=== PATIENT | male | born 1960 | race Caucasian/White ===

== ENCOUNTER → 2020-04-11 09:12 | Outpatient (CLI) | payer OTHER, MEDICAID, SELFPAY ==
[2020-04-11 10:52] LABS: BUN Creatinine Ratio 20.2 (6-22); Blood Urea Nitrogen 26 mg/dL (9-20); Estimated Glomerular Filt Rate 56.4 mL/min (>60)
== END ==
PROVIDERS: Family Provider Family Medicine; PCP Family Medicine; Referring Provider Urology; Visit Provider Urology
DX: R31.0 Gross hematuria (principal)
CPT/HCPCS: 36415; 82565; 84520

== ENCOUNTER → 2020-04-12 09:21 | Outpatient (CLI) | payer OTHER, MEDICAID, SELFPAY ==
--- NOTE | 2020-04-12 09:24 | DI.CT.S_ITS ---
PROCEDURE: CT ABDOMEN PELVIS WO/W CON INDICATIONS: Gross hematuria TECHNIQUE: Optional 5 mm thick noncontrast images acquired from the diaphragm to the symphysis pubis. After the administration of intravenous contrast, 5 mm thick images acquired from the diaphragm to the symphysis pubis after a 10-minute delay. 2 mm thick coronal and sagittal reformats were then performed of the kidneys and ureters. For radiation dose reduction, the following was used: automated exposure control, adjustment of mA and/or kV according to patient size. COMPARISON: None. FINDINGS: Image quality: Excellent. Lung bases: Lung bases are clear. Heart size is normal. Urinary system: No right kidney is seen. The left kidney demonstrates no focal abnormality. On precontrast imaging, no stones are seen. No enhancing masses are seen. Along the anterior aspect of the left kidney, there is a hyperdense cyst, which measures 22 Hounsfield units on precontrast imaging and postcontrast imaging. When filled with contrast, the renal calyces demonstrate a normal appearance. The ureter demonstrates no focal abnormality. No focal lateral thickening is seen. No bladder calcifications are seen. Other solid organs: Liver is normal in size and enhancement. Gallbladder has been removed. Biliary system is non dilated. Pancreas enhances normally. Spleen is normal in size and enhancement. No adrenal nodules. Peritoneum and bowel: Bowel loops demonstrate normal wall thickness and caliber. No free fluid or air. Incidental note is made of a normal-appearing appendix. Nodes and vessels: No retroperitoneal or mesenteric adenopathy by size criteria. Aorta and inferior vena cava are normal in size. Abdominal wall: No ventral hernias. Pelvis: No pathologic free pelvic fluid. No inguinal adenopathy. Bilateral fat containing inguinal hernias are seen, left worse than right. Bones: No suspicious bony lesions. No vertebral body compression fractures. Numerous chronic appearing Schmorl's nodes are seen. Mild retrolisthesis is seen at the L4-L5 level. Age-appropriate bony degenerative changes are seen. Numerous levels with bridging osteophytes can be seen. IMPRESSION: No right kidney is seen. Please correlate with known patient history. A cause of hematuria is not identified. No left kidney masses or stones are seen. There is a hyperdense, nonenhancing cyst seen involving the anterior left kidney. No ureteral or bladder abnormalities are seen. Incidental note is made of: Cholecystectomy Numerous Schmorl's nodes Normal appendix Bilateral fat containing inguinal hernias Dictated by: Konstantin Zarate M.D. on 04/12/2020 at 9:09 Approved by: Konstantin Zarate M.D. on 04/12/2020 at 9:14
== END ==
PROVIDERS: Family Provider Family Medicine; PCP Family Medicine; Referring Provider Urology; Visit Provider Urology
DX: R31.0 Gross hematuria (principal); N28.1 Cyst of kidney, acquired; K40.20 Bilateral inguinal hernia, without obstruction or gangrene, not specified as recurrent; Z90.49 Acquired absence of other specified parts of digestive tract
CPT/HCPCS: 74178; Q9967

== ENCOUNTER 2021-01-30 10:30 | Outpatient (RCR) | payer OTHER, MEDICAID, SELFPAY ==
--- NOTE | 2021-01-17 17:46 | PT.OIE ---
Current Diagnoses Pain in right knee (01/16/21) Stiffness of right knee, not elsewhere classified (01/16/21) Visit Care Team Role Provider Type Alba Yeager MD Attending Provider Non-Staff Family Provider Primary Care Provider Referring Provider Specialty: Medical [place], [address] Email: Physical Therapy Initial Evaluation PT-OP-A Visit Information Start: 01/16/21 17:38 Freq: Status: Active Protocol: Document 01/16/21 10:30 DCW (Rec: 01/16/21 17:47 [facility] [id number]) Out-Patient Physical Therapy Visit Information Visit Information Visit Type Initial Evaluation Visit Start Time 10:30 Visit Stop Time 11:05 Total Visit Minutes 35 Visit Number 1 Number of RICE MILLING SUPERVISOR Visits 0 Evaluation Information Evaluation Date 01/16/21 PT-OP-B Current Condition Start: 01/16/21 17:38 Freq: Status: Active Protocol: Document 01/16/21 10:30 DCW (Rec: 01/16/21 17:47 [facility] [id number]) Current Condition History of Current Condition Onset Date 4-5 month history Current Complaints Right knee pain, stiffness History of Current Condition Pt is a 60 year old male complaining of a 4-5 month history of right knee pain. Pt reports that 2-3 years ago, he had a meniscus tear, which was surgically repaired, however his knee is beginning to feel just like it did with his prior tear. Pt notes he did not have any traumatic injury when this began, it just crept up on him. Pt is very point specific to his anteriomedial joint line. Pt does note his knee will occasionally give out on him. He reports he has difficulty bending down to nut picker anything, bending his knee to don/doff shoes and socks, and has increased pain when attempting to perform his yard work. Pt also has 4 stairs to enter his house, and it is very difficult to ascend them after a long day working outside. Pt reports the only relief he has found is resting . Does note that he has a limp following a CVA a few years ago, and also admits it led to some memory problems, but other than that, has no significant remaining complications. Prior Treatments and Tests Prior history of right mensicus tear and repair Treatment Goals Patient/Caregiver Goals Return to yard work with no increased pain, Don/doff socks and shoes independently PT-OP-C Subjective Start: 01/16/21 17:38 Freq: Status: Active Protocol: Document 01/16/21 10:30 DCW (Rec: 01/16/21 17:49 [facility] [id number]) OP-PT Subjective Patient Comments Patient Comments It is really starting to feel just like it did a few years ago when I had a tear. It's not as bad yet, but it's getting there. Patient Reported Progress Worse Patient Questionnaires Lower Extremity Functional Scale LEFS Score 39/80 = 48.75 PT-OP-F Manual Assessment Start: 01/16/21 17:38 Freq: Status: Active Protocol: Document 01/16/21 10:30 DCW (Rec: 01/16/21 17:50 [facility] [id number]) Manual Assessments Soft Tissue Assessment Soft Tissue Mobility Assessment Soft tissue edema and joint effusion, pain with palpation along anteriomedial joint line . PT-OP-J Posture/Palpation/Skin Start: 01/16/21 17:38 Freq: Status: Active Protocol: Document 01/16/21 10:30 DCW (Rec: 01/16/21 17:53 [facility] [id number]) Skin Assessment Circumference Measurement 3 Location 10 cm superior to right knee joint line Measurement (Centimeters) 47.3 Comments 10 cm superior to left knee joint line: 46.8 cm 2 Location right knee joint line Measurement (Centimeters) 41 Comments left knee joint line: 38.8 1 Location 10 cm inferior to right knee joint line Measurement (Centimeters) 39.7 Comments 10 cm inferior to left knee joint line: 38.5 cm PT-OP-K Range of Motion Start: 01/16/21 17:38 Freq: Status: Active Protocol: Document 01/16/21 10:30 DCW (Rec: 01/16/21 17:53 [facility] [id number]) Knee Goniometric Range of Motion Knee Right Knee ROM WFL No Flexion Active (degrees) 105 Extension Active (degrees) 4 Left Knee ROM WFL Yes Patient Position Supine Flexion Active (degrees) 116 Extension Active (degrees) 0 PT-OP-L Special Tests Start: 01/16/21 17:38 Freq: Status: Active Protocol: Document 01/16/21 10:30 DCW (Rec: 01/17/21 09:36 [facility] [id number]) Special Tests Knee Special Tests Varus- 25 Degrees Test Results Negative Valgus- 25 Degrees Test Results Pain in medial R knee, no laxity Posterior Sag Test Results Negative Posterior Draw Test Results Negative Patella Tap Test Results Positive R John Test Test Results Positive R Elva's Test Results Negative Bounce Home Test Results Positive R Apprehension Test Test Results Positive R Apley's Compression Test Results Positive R Anterior Draw Test Results Negative PT-OP-M Strength Start: 01/16/21 17:38 Freq: Status: Active Protocol: Document 01/16/21 10:30 DCW (Rec: 01/17/21 09:36 [facility] [id number]) Knee Strength Knee Manual Muscle Testing Right Flexion (S2) 5 Normal Extension (L3) 5 Normal Comments No pain with muscle testing PT-OP-T Assessment and Plan Start: 01/16/21 17:38 Freq: Status: Active Protocol: Document 01/16/21 10:30 DCW (Rec: 01/17/21 17:46 [facility] [id number]) Physical Therapy Assessment Rehab Potential Rehabilitation Potential Fair Evaluation Complexity Number of Personal Factors/Comorbidities 1-2 Number of Body Systems Impaired 1-2 Clinical Presentation at Evaluation Evolving Impairments Impairments Activity Tolerance,Edema, Functional Activities, Functional Mobility,Gait,Pain, ROM,Tone Goals Three Impairment Right joint effusion along joint line Welfare Manager Goal (LTG) Pt to demonstrate decrease of right knee effusion by decreasing circumfrential measurement along joint line from 41 cm to 39 cm LTG Duration 03/18/21 Two Impairment Pt unable to put on his socks without assistance due to limited ROM Welfare Manager Goal (LTG) Pt to demonstrate right knee ROM improved from 4?-105? to 0 ?-115? to enable him to don/ doff his shoes and socks without assistance LTG Duration 03/18/21 One Impairment Pt does not have an appropriate home exercise program Short Term Goal (STG) Pt to be independent and compliant with an appropriate HEP STG Duration 02/16/21 Assessment Summary Assessment Pt presents with signs and symptoms consistent with a meniscus strain or potential tear. Pt has point specific pain along right anteriormedial joint line, decreased right ROM, joint edema, and positive bounce home, apprehension, John, and Apley compression tests, which are all suggestive of possible medial meniscus involvement. Pt may benefit from skilled therapy focusing on decreasing edema/effusion, improving ROM, pain-control, and decreasing antalgic gait. Physical Therapy Plan Frequency and Duration Frequency of Treatment 2x/Week Duration of Treatment Two months Plan of Care Start Date 01/16/21 Plan of Care End Date 03/18/21 Therapeutic Interventions Therapeutic Interventions Gait Training,Home Exercise Program,Joint Mobilizations, Manual Therapy,Neuromuscular Re-education,Patient/Caregiver Education,Self-Care/Home Management,Soft Tissue Mobilization,Taping, Therapeutic Activities, Therapeutic Exercises Modalities Cold Pack/Ice Massage,Electric Stimulation,Hot Packs, Ultrasound Next Visit Focus/Plan Next Note Type Treatment Note Next Visit Plan ROM, edema control, STM, joint mobilization
--- NOTE | 2021-01-17 17:46 | PT.OPPOC ---
Physical, Occupational & Speech Therapy At [facility] Current Diagnoses Pain in right knee (01/16/21) Stiffness of right knee, not elsewhere classified (01/16/21) Visit Care Team Role Provider Type Alba Yeager MD Attending Provider Non-Staff Family Provider Primary Care Provider Referring Provider Specialty: Medical Address: [address] [place] [address], [id number] Email: Plan Of Care PT-OP-T Assessment and Plan Start: 01/16/21 17:38 Freq: Status: Active Protocol: Document 01/16/21 10:30 DCW (Rec: 01/17/21 17:46 [facility] [id number]) Physical Therapy Assessment Rehab Potential Rehabilitation Potential Fair Evaluation Complexity Number of Personal Factors/Comorbidities 1-2 Number of Body Systems Impaired 1-2 Clinical Presentation at Evaluation Evolving Impairments Impairments Activity Tolerance,Edema, Functional Activities, Functional Mobility,Gait,Pain, ROM,Tone Goals Three Impairment Right joint effusion along joint line Ammonia Still Operator Goal (LTG) Pt to demonstrate decrease of right knee effusion by decreasing circumfrential measurement along joint line from 41 cm to 39 cm LTG Duration 03/18/21 Two Impairment Pt unable to put on his socks without assistance due to limited ROM Prison Goal (LTG) Pt to demonstrate right knee ROM improved from 4?-105? to 0 ?-115? to enable him to don/ doff his shoes and socks without assistance LTG Duration 03/18/21 One Impairment Pt does not have an appropriate home exercise program Short Term Goal (STG) Pt to be independent and compliant with an appropriate HEP STG Duration 02/16/21 Assessment Summary Assessment Pt presents with signs and symptoms consistent with a meniscus strain or potential tear. Pt has point specific pain along right anteriormedial joint line, decreased right ROM, joint edema, and positive bounce home, apprehension, John, and Apley compression tests, which are all suggestive of possible medial meniscus involvement. Pt may benefit from skilled therapy focusing on decreasing edema/effusion, improving ROM, pain-control, and decreasing antalgic gait. Physical Therapy Plan Frequency and Duration Frequency of Treatment 2x/Week Duration of Treatment Two months Plan of Care Start Date 01/16/21 Plan of Care End Date 03/18/21 Therapeutic Interventions Therapeutic Interventions Gait Training,Home Exercise Program,Joint Mobilizations, Manual Therapy,Neuromuscular Re-education,Patient/Caregiver Education,Self-Care/Home Management,Soft Tissue Mobilization,Taping, Therapeutic Activities, Therapeutic Exercises Modalities Cold Pack/Ice Massage,Electric Stimulation,Hot Packs, Ultrasound Next Visit Focus/Plan Next Note Type Treatment Note Next Visit Plan ROM, edema control, STM, joint mobilization Plan of Care Dates Plan of Care Start Date 01/16/21 Plan of Care End Date 03/18/21 Electronically Signed by: Chang Lu, PT 01/17/21 [id number] Please Sign and Return: I have reviewed this Plan of Care and certify that the skilled therapy services above are required to meet the patient?s needs. Physician Signature Date Printed Name and Credentials Clinical Instructor Signature Printed Name and Credentials
--- NOTE | 2021-01-26 10:24 | PT.OTN ---
Current Diagnoses Pain in right knee (01/26/21) Stiffness of right knee, not elsewhere classified (01/26/21) Physical Therapy Treatment Note PT-OP-A Visit Information Start: 01/16/21 17:38 Freq: Status: Active Protocol: Document 01/26/21 09:45 DCW (Rec: 01/26/21 10:24 [facility] [id number]) Out-Patient Physical Therapy Visit Information Visit Information Visit Type Treatment Note Visit Start Time 09:45 Visit Stop Time 10:30 Total Visit Minutes 45 Visit Number 2 Number of BUSBOY Visits 0 Evaluation Information Evaluation Date 01/16/21 PT-OP-B Current Condition Start: 01/16/21 17:38 Freq: Status: Active Protocol: Document 01/16/21 10:30 DCW (Rec: 01/16/21 17:47 [facility] [id number]) Current Condition History of Current Condition Onset Date 4-5 month history Current Complaints Right knee pain, stiffness History of Current Condition Pt is a 60 year old male complaining of a 4-5 month history of right knee pain. Pt reports that 2-3 years ago, he had a meniscus tear, which was surgically repaired, however his knee is beginning to feel just like it did with his prior tear. Pt notes he did not have any traumatic injury when this began, it just crept up on him. Pt is very point specific to his anteriomedial joint line. Pt does note his knee will occasionally give out on him. He reports he has difficulty bending down to mushroom picker anything, bending his knee to don/doff shoes and socks, and has increased pain when attempting to perform his yard work. Pt also has 4 stairs to enter his house, and it is very difficult to ascend them after a long day working outside. Pt reports the only relief he has found is resting . Does note that he has a limp following a CVA a few years ago, and also admits it led to some memory problems, but other than that, has no significant remaining complications. Prior Treatments and Tests Prior history of right mensicus tear and repair Treatment Goals Patient/Caregiver Goals Return to yard work with no increased pain, Don/doff socks and shoes independently PT-OP-C Subjective Start: 01/16/21 17:38 Freq: Status: Active Protocol: Document 01/26/21 09:45 DCW (Rec: 01/26/21 10:24 [facility] [id number]) OP-PT Subjective Patient Comments Patient Comments My knee is worse now. It's locking up on me. Admits that he has been doing a lot of work in his yard and not exactly taking it easy. PT-OP-F Manual Assessment Start: 01/16/21 17:38 Freq: Status: Active Protocol: Document 01/16/21 10:30 DCW (Rec: 01/16/21 17:50 [facility] [id number]) Manual Assessments Soft Tissue Assessment Soft Tissue Mobility Assessment Soft tissue edema and joint effusion, pain with palpation along anteriomedial joint line . PT-OP-J Posture/Palpation/Skin Start: 01/16/21 17:38 Freq: Status: Active Protocol: Document 01/16/21 10:30 DCW (Rec: 01/16/21 17:53 DCW [id number]) Skin Assessment Circumference Measurement 3 Location 10 cm superior to right knee joint line Measurement (Centimeters) 47.3 Comments 10 cm superior to left knee joint line: 46.8 cm 2 Location right knee joint line Measurement (Centimeters) 41 Comments left knee joint line: 38.8 1 Location 10 cm inferior to right knee joint line Measurement (Centimeters) 39.7 Comments 10 cm inferior to left knee joint line: 38.5 cm PT-OP-K Range of Motion Start: 01/16/21 17:38 Freq: Status: Active Protocol: Document 01/16/21 10:30 DCW (Rec: 01/16/21 17:53 DCW [id number]) Knee Goniometric Range of Motion Knee Right Knee ROM WFL No Flexion Active (degrees) 105 Extension Active (degrees) 4 Left Knee ROM WFL Yes Patient Position Supine Flexion Active (degrees) 116 Extension Active (degrees) 0 PT-OP-L Special Tests Start: 01/16/21 17:38 Freq: Status: Active Protocol: Document 01/16/21 10:30 DCW (Rec: 01/17/21 09:36 DCW [id number]) Special Tests Knee Special Tests Varus- 25 Degrees Test Results Negative Valgus- 25 Degrees Test Results Pain in medial R knee, no laxity Posterior Sag Test Results Negative Posterior Draw Test Results Negative Patella Tap Test Results Positive R John Test Test Results Positive R Elva's Test Results Negative Bounce Home Test Results Positive R Apprehension Test Test Results Positive R Apley's Compression Test Results Positive R Anterior Draw Test Results Negative PT-OP-M Strength Start: 01/16/21 17:38 Freq: Status: Active Protocol: Document 01/16/21 10:30 DCW (Rec: 01/17/21 09:36 DCW [id number]) Knee Strength Knee Manual Muscle Testing Right Flexion (S2) 5 Normal Extension (L3) 5 Normal Comments No pain with muscle testing PT-OP-Q Treatments Start: 01/16/21 17:38 Freq: Status: Active Protocol: Document 01/26/21 09:45 DCW (Rec: 01/26/21 10:24 DCW [id number]) Therapeutic Exercises Supine Exercises 4 Supine Exercise Name Heel Slides Side right 3 Supine Exercise Name SLR Side right Reps/Minutes x10 2 Supine Exercise Name SAQ Side right Reps/Minutes x10 1 Supine Exercise Name Quad Set Side right Reps/Minutes 5 hold x10 Standing Exercises 1 Standing Exercise Name TKE Manual Therapy Treatment Joint Mobilizations 1 Joint Patellofemoral Direction Inf/Superior Grade II Body Position Supine PT-OP-R Modalities Start: 01/16/21 17:38 Freq: Status: Active Protocol: Document 01/26/21 09:45 DCW (Rec: 01/26/21 10:24 DCW [id number]) Electric Stimulation Electric Stimulation Interferential Current (IFC) Body Location R Knee Duration (Minutes) 15 Patient Position Hooklying Combined With Heat/Cold Cold Pack PT-OP-T Assessment and Plan Start: 01/16/21 17:38 Freq: Status: Active Protocol: Document 01/26/21 09:45 DCW (Rec: 01/26/21 10:24 DCW [id number]) Physical Therapy Assessment Impairments Impairments Activity Tolerance,Edema, Functional Activities, Functional Mobility,Gait,Pain, ROM,Tone Goals Three Impairment Right joint effusion along joint line Senior Living Goal (LTG) Pt to demonstrate decrease of right knee effusion by decreasing circumfrential measurement along joint line from 41 cm to 39 cm LTG Duration 03/18/21 Two Impairment Pt unable to put on his socks without assistance due to limited ROM Senior Living Goal (LTG) Pt to demonstrate right knee ROM improved from 4?-105? to 0 ?-115? to enable him to don/ doff his shoes and socks without assistance LTG Duration 03/18/21 One Impairment Pt does not have an appropriate home exercise program Short Term Goal (STG) Pt to be independent and compliant with an appropriate HEP STG Duration 02/16/21 Assessment Summary Assessment Pt showing increased pain and effusion today. Limited participation in therapy due to pain. Trial of e-stim for pain control. Pt returning to PCP on 02/06/21 to request further meniscus evaluation. Physical Therapy Plan Frequency and Duration Frequency of Treatment 2x/Week Duration of Treatment Two months Plan of Care Start Date 01/16/21 Plan of Care End Date 03/18/21 Therapeutic Interventions Therapeutic Interventions Gait Training,Home Exercise Program,Joint Mobilizations, Manual Therapy,Neuromuscular Re-education,Patient/Caregiver Education,Self-Care/Home Management,Soft Tissue Mobilization,Taping, Therapeutic Activities, Therapeutic Exercises Modalities Cold Pack/Ice Massage,Electric Stimulation,Hot Packs, Ultrasound Next Visit Focus/Plan Next Note Type Treatment Note Next Visit Plan ROM, edema control, STM, joint mobilization
--- NOTE | 2021-01-30 11:14 | PT.OTN ---
Current Diagnoses Pain in right knee (01/30/21) Stiffness of right knee, not elsewhere classified (01/30/21) Physical Therapy Treatment Note PT-OP-A Visit Information Start: 01/16/21 17:38 Freq: Status: Active Protocol: Document 01/30/21 10:30 DCW (Rec: 01/30/21 11:14 DCW [id number]) Out-Patient Physical Therapy Visit Information Visit Information Visit Type Treatment Note Visit Start Time 10:30 Visit Stop Time 11:15 Total Visit Minutes 45 Visit Number 3 Number of TIMBER SPOTTER Visits 0 Evaluation Information Evaluation Date 01/16/21 PT-OP-B Current Condition Start: 01/16/21 17:38 Freq: Status: Active Protocol: Document 01/16/21 10:30 DCW (Rec: 01/16/21 17:47 DCW [id number]) Current Condition History of Current Condition Onset Date 4-5 month history Current Complaints Right knee pain, stiffness History of Current Condition Pt is a 60 year old male complaining of a 4-5 month history of right knee pain. Pt reports that 2-3 years ago, he had a meniscus tear, which was surgically repaired, however his knee is beginning to feel just like it did with his prior tear. Pt notes he did not have any traumatic injury when this began, it just crept up on him. Pt is very point specific to his anteriomedial joint line. Pt does note his knee will occasionally give out on him. 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 Pt also has 4 stairs to enter his house, and it is very difficult to ascend them after a long day working outside. Pt reports the only relief he has found is resting . Does note that he has a limp following a CVA a few years ago, and also admits it led to some memory problems, but other than that, has no significant remaining complications. Prior Treatments and Tests Prior history of right mensicus tear and repair Treatment Goals Patient/Caregiver Goals Return to yard work with no increased pain, Don/doff socks and shoes independently PT-OP-C Subjective Start: 01/16/21 17:38 Freq: Status: Active Protocol: Document 01/30/21 10:30 DCW (Rec: 01/30/21 11:14 DCW [id number]) OP-PT Subjective Patient Comments Patient Comments Pt notes his knee is worse once again, now hurts on both sides. Reports his knee felt better after the E-stim , but was done for the day by the time he got home. Pt has an upcoming appointment with his PCP next week. PT-OP-F Manual Assessment Start: 01/16/21 17:38 Freq: Status: Active Protocol: Document 01/16/21 10:30 DCW (Rec: 01/16/21 17:50 DCW [id number]) Manual Assessments Soft Tissue Assessment Soft Tissue Mobility Assessment Soft tissue edema and joint effusion, pain with palpation along anteriomedial joint line . PT-OP-J Posture/Palpation/Skin Start: 01/16/21 17:38 Freq: Status: Active Protocol: Document 01/16/21 10:30 DCW (Rec: 01/16/21 17:53 DCW [id number]) Skin Assessment Circumference Measurement 3 Location 10 cm superior to right knee joint line Measurement (Centimeters) 47.3 Comments 10 cm superior to left knee joint line: 46.8 cm 2 Location right knee joint line Measurement (Centimeters) 41 Comments left knee joint line: 38.8 1 Location 10 cm inferior to right knee joint line Measurement (Centimeters) 39.7 Comments 10 cm inferior to left knee joint line: 38.5 cm PT-OP-K Range of Motion Start: 01/16/21 17:38 Freq: Status: Active Protocol: Document 01/16/21 10:30 DCW (Rec: 01/16/21 17:53 DCW [id number]) Knee Goniometric Range of Motion Knee Right Knee ROM WFL No Flexion Active (degrees) 105 Extension Active (degrees) 4 Left Knee ROM WFL Yes Patient Position Supine Flexion Active (degrees) 116 Extension Active (degrees) 0 PT-OP-L Special Tests Start: 01/16/21 17:38 Freq: Status: Active Protocol: Document 01/16/21 10:30 DCW (Rec: 01/17/21 09:36 DCW [id number]) Special Tests Knee Special Tests Varus- 25 Degrees Test Results Negative Valgus- 25 Degrees Test Results Pain in medial R knee, no laxity Posterior Sag Test Results Negative Posterior Draw Test Results Negative Patella Tap Test Results Positive R John Test Test Results Positive R Elva's Test Results Negative Bounce Home Test Results Positive R Apprehension Test Test Results Positive R Apley's Compression Test Results Positive R Anterior Draw Test Results Negative PT-OP-M Strength Start: 01/16/21 17:38 Freq: Status: Active Protocol: Document 01/16/21 10:30 DCW (Rec: 01/17/21 09:36 DCW [id number]) Knee Strength Knee Manual Muscle Testing Right Flexion (S2) 5 Normal Extension (L3) 5 Normal Comments No pain with muscle testing PT-OP-Q Treatments Start: 01/16/21 17:38 Freq: Status: Active Protocol: Document 01/30/21 10:30 DCW (Rec: 01/30/21 11:14 DCW [id number]) Cardio Equipment Recumbent Elliptical ([employer]) Duration (Minutes) 6 Resistance 3 Seat Position 9 Therapeutic Exercises Supine Exercises 4 Supine Exercise Name Heel Slides Side right 2 Supine Exercise Name SAQ Side right Reps/Minutes x10 1 Supine Exercise Name Quad Set Side right Reps/Minutes 5 hold x10 Standing Exercises 1 Standing Exercise Name TKE Resistance Lv 2 Equipment Used T-band Comments stopped d/t pain Manual Therapy Treatment Joint Mobilizations 1 Joint Patellofemoral Direction Inf/Superior Grade II Body Position Supine PT-OP-R Modalities Start: 01/16/21 17:38 Freq: Status: Active Protocol: Document 01/30/21 10:30 DCW (Rec: 01/30/21 11:14 DCW [id number]) Electric Stimulation Electric Stimulation Interferential Current (IFC) Body Location R Knee Duration (Minutes) 15 Patient Position Hooklying Combined With Heat/Cold Cold Pack PT-OP-T Assessment and Plan Start: 01/16/21 17:38 Freq: Status: Active Protocol: Document 01/30/21 10:30 DCW (Rec: 01/30/21 11:14 DCW [id number]) Physical Therapy Assessment Impairments Impairments Activity Tolerance,Edema, Functional Activities, Functional Mobility,Gait,Pain, ROM,Tone Goals Three Impairment Right joint effusion along joint line Mine Geologist Goal (LTG) Pt to demonstrate decrease of right knee effusion by decreasing circumfrential measurement along joint line from 41 cm to 39 cm LTG Duration 5/8/21 Two Impairment Pt unable to put on his socks without assistance due to limited ROM Alf Goal (LTG) Pt to demonstrate right knee ROM improved from 4?-105? to 0 ?-115? to enable him to don/ doff his shoes and socks without assistance LTG Duration 03/18/21 One Impairment Pt does not have an appropriate home exercise program Short Term Goal (STG) Pt to be independent and compliant with an appropriate HEP STG Duration 02/16/21 Assessment Summary Assessment Pt not responding well to PT. Flares up significantly with gentle ROM/Strengthening exercises. Hopeful return to PCP will lead to imaging. Physical Therapy Plan Frequency and Duration Frequency of Treatment 2x/Week Duration of Treatment Two months Plan of Care Start Date 01/16/21 Plan of Care End Date 03/18/21 Therapeutic Interventions Therapeutic Interventions Gait Training,Home Exercise Program,Joint Mobilizations, Manual Therapy,Neuromuscular Re-education,Patient/Caregiver Education,Self-Care/Home Management,Soft Tissue Mobilization,Taping, Therapeutic Activities, Therapeutic Exercises Modalities Cold Pack/Ice Massage,Electric Stimulation,Hot Packs, Ultrasound Next Visit Focus/Plan Next Note Type Treatment Note Next Visit Plan ROM, edema control, STM, joint mobilization
--- NOTE | 2021-04-13 15:28 | PT.OPDS ---
Current Diagnoses Pain in right knee (01/30/21) Stiffness of right knee, not elsewhere classified (01/30/21) Visit Care Team Role Provider Type Alba Yeager MD Attending Provider Non-Staff Family Provider Primary Care Provider Referring Provider Specialty: Medical [place]: [place], [address] Email: Visit Number Visit Number 3 Discharge Summary PT-OP-B Current Condition Start: 01/16/21 17:38 Freq: Status: Active Protocol: Document 01/16/21 10:30 DCW (Rec: 01/16/21 17:47 DCW [id number]) Current Condition History of Current Condition Onset Date 4-5 month history Current Complaints Right knee pain, stiffness History of Current Condition Pt is a 60 year old male complaining of a 4-5 month history of right knee pain. Pt reports that 2-3 years ago, he had a meniscus tear, which was surgically repaired, however his knee is beginning to feel just like it did with his prior tear. Pt notes he did not have any traumatic injury when this began, it just crept up on him. Pt is very point specific to his anteriomedial joint line. Pt does note his knee will occasionally give out on him. 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 Pt also has 4 stairs to enter his house, and it is very difficult to ascend them after a long day working outside. Pt reports the only relief he has found is resting . Does note that he has a limp following a CVA a few years ago, and also admits it led to some memory problems, but other than that, has no significant remaining complications. Prior Treatments and Tests Prior history of right mensicus tear and repair Treatment Goals Patient/Caregiver Goals Return to yard work with no increased pain, Don/doff socks and shoes independently PT-OP-C Subjective Start: 01/16/21 17:38 Freq: Status: Active Protocol: Document 01/30/21 10:30 DCW (Rec: 01/30/21 11:14 DCW [id number]) OP-PT Subjective Patient Comments Patient Comments Pt notes his knee is worse once again, now hurts on both sides. Reports his knee felt better after the E-stim , but was done for the day by the time he got home. Pt has an upcoming appointment with his PCP next week. PT-OP-F Manual Assessment Start: 01/16/21 17:38 Freq: Status: Active Protocol: Document 01/16/21 10:30 DCW (Rec: 01/16/21 17:50 DCW [id number]) Manual Assessments Soft Tissue Assessment Soft Tissue Mobility Assessment Soft tissue edema and joint effusion, pain with palpation along anteriomedial joint line . PT-OP-J Posture/Palpation/Skin Start: 01/16/21 17:38 Freq: Status: Active Protocol: Document 01/16/21 10:30 DCW (Rec: 01/16/21 17:53 DCW [id number]) Skin Assessment Circumference Measurement 3 Location 10 cm superior to right knee joint line Measurement (Centimeters) 47.3 Comments 10 cm superior to left knee joint line: 46.8 cm 2 Location right knee joint line Measurement (Centimeters) 41 Comments left knee joint line: 38.8 1 Location 10 cm inferior to right knee joint line Measurement (Centimeters) 39.7 Comments 10 cm inferior to left knee joint line: 38.5 cm PT-OP-K Range of Motion Start: 01/16/21 17:38 Freq: Status: Active Protocol: Document 01/16/21 10:30 DCW (Rec: 01/16/21 17:53 DCW [id number]) Knee Goniometric Range of Motion Knee Right Knee ROM WFL No Flexion Active (degrees) 105 Extension Active (degrees) 4 Left Knee ROM WFL Yes Patient Position Supine Flexion Active (degrees) 116 Extension Active (degrees) 0 PT-OP-L Special Tests Start: 01/16/21 17:38 Freq: Status: Active Protocol: Document 01/16/21 10:30 DCW (Rec: 01/17/21 09:36 DCW [id number]) Special Tests Knee Special Tests Varus- 25 Degrees Test Results Negative Valgus- 25 Degrees Test Results Pain in medial R knee, no laxity Posterior Sag Test Results Negative Posterior Draw Test Results Negative Patella Tap Test Results Positive R John Test Test Results Positive R Elva's Test Results Negative Bounce Home Test Results Positive R Apprehension Test Test Results Positive R Apley's Compression Test Results Positive R Anterior Draw Test Results Negative PT-OP-M Strength Start: 01/16/21 17:38 Freq: Status: Active Protocol: Document 01/16/21 10:30 DCW (Rec: 01/17/21 09:36 DCW [id number]) Knee Strength Knee Manual Muscle Testing Right Flexion (S2) 5 Normal Extension (L3) 5 Normal Comments No pain with muscle testing PT-OP-T Assessment and Plan Start: 01/16/21 17:38 Freq: Status: Active Protocol: Document 04/13/21 15:27 DCW (Rec: 04/13/21 15:28 DCW [id number]) Physical Therapy Assessment Assessment Summary Assessment Pt had planned to return to PCP for imaging d/t poor response to conservative treatment. Pt has not been seen in skilled therapy for more than two months, will be discharged at this time. Pt will need a new referral in order to return to therapy. Physical Therapy Plan Discharge Physical Therapy Discharge Reasons No Longer Attending PT Next Visit Focus/Plan Next Note Type Discharge Summary
== END 2021-04-14 07:52 | disposition home or self-care (01) ==
LOC: PHYS 10:30
PROVIDERS: Family Provider Family Medicine; PCP Family Medicine; Referring Provider Family Medicine; Visit Provider Family Medicine
DX: M25.561 Pain in right knee (principal); M25.661 Stiffness of right knee, not elsewhere classified
CPT/HCPCS: 97032; 97110; 97140; 97161